=== PATIENT | female | born 1945 | race Caucasian/White ===

== ENCOUNTER 2017-10-17 06:36 | Day surgery (SDC) | payer MEDICARE, OTHER ==
[2017-10-17] MEDS ORDERED: Sodium Chloride 0.9% 1,000 ML IV SCH (07:15)
[2017-10-17] MEDS ORDERED: Midazolam 1 MG/ML 2 ML SDV ONE (07:17)
[2017-10-17] MEDS ORDERED: Propofol 200 MG/20 ML SDV ONE (07:17)
[2017-10-17] MEDS ORDERED: fentaNYL 100 MCG/2 ML SDV ONE (07:17)
[2017-10-17] MEDS ORDERED: Sodium Chloride 0.9% 10 ML ONE (08:21)
[2017-10-17 09:29] VITALS: BP 164/82
--- NOTE | 2017-10-18 08:29 | OR ---
DATE OF PROCEDURE: 10/17/2017 PROCEDURE: Colonoscopy. FINDINGS: 1. Diverticulosis, moderate, limited to sigmoid colon. 2. Sessile-type polyp at approximately 10 cm, partially removed using hot snare and tattooed at the site using Mary ink. RISKS: Risks, benefits, alternatives, and limitations including, but not limited to infection, bleeding, and perforation were explained to the patient, who wished to proceed. PREOPERATIVE DIAGNOSIS: Screening colonoscopy. POSTOPERATIVE DIAGNOSIS: Screening colonoscopy. PROCEDURE IN DETAIL: The patient was placed in left lateral decubitus position. Digital rectal exam was performed without abnormality. The scope was introduced and advanced atraumatically to the ileocecal valve. The scope was brought back through the ascending, transverse, descending colon, and retroflexed. The only polyp noted was a sessile-type plaque-like lesion at approximately 10 cm and size of approximately 1 to 1.5 cm. This was biopsied first using cold biopsy forceps and then a submucosal normal saline injection was performed to facilitate maximum removal using hot snare. Unfortunately, this was not amenable to complete removal, due to the very flat-like aspect of this. Minimal bleeding was noted during this removal. The patient also had diverticulosis, which was limited to the sigmoid colon. No abnormalities on retroflexion. The patient tolerated the procedure well. Yamil Dale MD /[id number]
== END 2017-10-17 10:00 | disposition home or self-care (01) ==
LOC: JP.SDS 06:36
PROVIDERS: ATTEND Surgery
DX: Z12.11 Encounter for screening for malignant neoplasm of colon (principal); D12.8 Benign neoplasm of rectum; K57.30 Diverticulosis of large intestine without perforation or abscess without bleeding; I10 Essential (primary) hypertension; Z91.030 Bee allergy status; Z91.09 Other allergy status, other than to drugs and biological substances
CPT/HCPCS: 45380; 45381; 45385; 88305; J2250; J2704; J3010; J7040; J7050; J7030

== ENCOUNTER 2017-10-24 23:36 | Observation (INO) | payer MEDICARE, OTHER ==
[2017-10-25] MEDS ORDERED: Ondansetron 4 MG Tab.DIS PO ONE (00:23)
[2017-10-25] MEDS ORDERED: HYDROmorphone 1 MG/ML Syringe IVPUSH ONE (01:04)
[2017-10-25] MEDS ORDERED: Lactated Ringers 1,000 ML IV SCH (01:15)
[2017-10-25] MEDS ORDERED: Acetaminophen 325 MG Tab PO PRN (02:49)
[2017-10-25] MEDS ORDERED: Morphine 2 MG/ML Syringe IVPUSH PRN (02:49)
[2017-10-25] MEDS ORDERED: Temazepam 15 MG Cap PO PRN (02:49)
[2017-10-25] MEDS ORDERED: Promethazine 25 MG Tab PO PRN (02:49)
[2017-10-25] MEDS ORDERED: Albuterol 0.083% 2.5 MG/3 ML Neb Soln NEB PRN (02:49)
[2017-10-25] MEDS ORDERED: Ibuprofen 600 MG Tab PO PRN (02:49)
[2017-10-25] MEDS ORDERED: LORazepam 2 MG/ML SDV IV PRN (02:49)
--- NOTE | 2017-10-25 02:59 | PCM.HP ---
H&P History of Present Illness - General Date of Service: 10/24/17 Admit Problem/Dx: Admission Diagnosis/Problem Admission Diagnosis/Problem Flank pain Source of Information: Patient History Limitations: Reports: No Limitations - History of Present Illness Initial Comments - Free Text/Narative: left flank and abdominal pain -pt arrived with severe left sided flank pain and extending into the groin. She has pain when she voids. She reports has been sick since 10 am. feeling nauseated, dry heaves. severe back and low abdomen pain. Onset of Symptoms: Reports: Sudden Symptom Onset Date: 10/24/17 Symptom Onset Time: 10:10 Duration of Symptoms: Reports: Getting Worse Location: Reports: Abdomen Quality: Reports: Same as Previous Episode (hx kidney stones on March 2017) Severity: Moderate Improves with: Reports: Medication Worsens with: Reports: None Associated Symptoms: Reports: Loss of Appetite, Nausea/Vomiting Middle Abdomen Pain Score (Numeric/FACES): 6 - Related Data Allergies/Adverse Reactions: Allergies Allergy/AdvReac Type Severity Reaction Status Date / Time adhesive Allergy Blisters Verified 10/25/17 00:13 venom-honey bee Allergy Swelling Verified 10/25/17 00:13 [bee venom (honey bee)] Home Medications: Home Meds EPINEPHrine [Epipen] 0.3 mg IM ASDIRECTED PRN 12/09/13 [History] Sennosides [Senna Laxative] 15 mg PO DAILY 06/28/14 [History] Naproxen [Take Home: Naproxen 500 MG, 4 Tab Pack] 500 mg PO BID PRN 09/13/15 [ History] Biotin/Calcium Carbonate [Biotin 800 MCG] 800 mg PO DAILY 04/17/16 [History] Aspirin [Halfprin] 81 mg PO DAILY 10/16/17 [History] Lisinopril/Hydrochlorothiazide [Lisinopril-Hctz 20-25 mg Tab] 1 each PO DAILY [History] Past Medical History HEENT History: Reports: Cataract, Impaired Vision Cardiovascular History: Reports: High Cholesterol, Hypertension Gastrointestinal History: Reports: Chronic Constipation, Colon Polyp, Diverticulosis, GERD, Hemorrhoids, Irritable Bowel Syndrome Genitourinary History: Reports: Renal Calculus [employer] History: Reports: , Prolapsed Uterus Musculoskeletal History: Reports: None Neurological History: Reports: Concussion, TIA, Vertigo Endocrine/Metabolic History: Reports: Osteoporosis Dermatologic History: Reports: None - Infectious Disease History Infectious Disease History: Reports: Chicken Pox - Past Surgical History HEENT Surgical History: Reports: Cataract Surgery, Eye Surgery, Oral Surgery, Other (See Below) GI Surgical History: Reports: Colonoscopy, Hernia, Inguinal, Polypectomy Musculoskeletal Surgical History: Reports: Arthroscopic Procedure, Shoulder Surgery, Other (See Below) Dermatological Surgical History: Reports: Skin Biopsy Social & Family History - Family History Family Medical History: Noncontributory - Tobacco Use Smoking Status *Q: Never Smoker Years of Tobacco use: 10 Packs/Tins Daily: 0.5 Used Tobacco, but Quit: Yes Month Tobacco Last Used: 20 yrs ago Second Hand Smoke Exposure: No - Caffeine Use Caffeine Use: Reports: Coffee - Alcohol Use Days Per Week of Alcohol Use: 1 Number of Drinks Per Day: 1 Total Drinks Per Week: 1 - Recreational Drug Use Recreational Drug Use: No - Living Situation & Occupation Living situation: Reports: , with Family Occupation: Retired H&P Review of Systems - Review of Systems: Review Of Systems: Unable To Obtain General: Reports: Fever, Chills, Malaise, Weakness, Decreased Appetite, Other ( pain in left side) HEENT: Reports: No Symptoms Pulmonary: Reports: No Symptoms Cardiovascular: Reports: No Symptoms Gastrointestinal: Reports: No Symptoms Genitourinary: Reports: Flank Pain (left) Musculoskeletal: Reports: Back Pain (left) Skin: Reports: No Symptoms Psychiatric: Reports: No Symptoms Neurological: Reports: No Symptoms Hematologic/Lymphatic: Reports: No Symptoms Immunologic: Reports: No Symptoms Exam - Exam Exam: See Below - Vital Signs Vital Signs: Last Vital Signs Temp 35.8 C 10/25/17 00:09 Pulse 68 10/25/17 00:09 Resp 14 10/25/17 00:09 BP 147/69 H 10/25/17 00:09 Pulse Ox 97 10/25/17 00:09 Weight: 74.389 kg - Exam General: Alert, Oriented, 4 HEENT: PERRLA, Hearing Intact, Mucosa Moist & [place], Nares Patent, Normal Nasal Septum, Posterior Pharynx Clear, Conjunctiva Clear, EOMI, EACs Clear, TMs Clear Neck: Supple, Trachea Midline, 2 Lungs: Clear to Auscultation, Normal Respiratory Effort Cardiovascular: Regular Rate, Regular Rhythm GI/Abdominal Exam: Normal Bowel Sounds, Soft, No Organomegaly, No Distention, No Abnormal Bruit, No Mass, Pelvis Stable, Tender (left lateral and left low pelvis; tender to palpation) (Female) Exam: Deferred Rectal (Female) Exam: Deferred Back Exam: Normal Inspection, Full Range of Motion, NT Extremities: Normal Inspection, Normal Range of Motion, Non-Tender, No Pedal Edema, Normal Capillary Refill Peripheral Pulses: 2+: Dorsalis Pedis (L), Dorsalis Pedis (R) Skin: Warm, Dry, Intact Neurological: Cranial Nerves Intact, Reflexes Equal Bilateral Neuro Extensive - Mental Status: Alert, Oriented x3, Normal Mood/Affect, Normal Cognition Neuro Extensive - Motor, Sensory, Reflexes: CN II-XII Intact, Normal Gait, Normal Reflexes Psychiatric: Alert, Normal Affect, Normal Mood - Patient Data Lab Results Last 24 hrs: Laboratory Results - last 24 hr 10/24/17 10/24/17 10/25/17 Range/Units 23:41 23:41 00:27 WBC 10.6 (4.5-11.0) K/uL RBC 4.54 (3.30-5.50) M/uL Hgb 13.7 (12.0-15.0) g/dL Hct 39.6 (36.0-48.0) % MCV 87 (80-98) fL MCH 30 (27-31) pg MCHC 35 (32-36) % Plt Count 215 (150-400) K/uL Neut % (Auto) 72 H (36-66) % Lymph % (Auto) 17 L (24-44) % [place] % (Auto) 10 H (2-6) % Eos % (Auto) 0 L (2-4) % Baso % (Auto) 0 (0-1) % Sodium 141 (140-148) mmol/L Potassium 4.0 (3.6-5.2) mmol/L Chloride 105 (100-108) mmol/L Carbon Dioxide 25 (21-32) mmol/L Anion Gap 10.8 (5.0-14.0) mmol/L BUN 27 H (7-18) mg/dL Creatinine 1.3 H (0.6-1.0) mg/dL Est Cr Clr Drug Dosing 34.49 mL/min Estimated GFR (MDRD) 40 L (>60) Glucose 128 H (74-106) mg/dL Calcium 8.7 (8.5-10.1) mg/dL Urine Color Yellow Urine Appearance Clear Urine pH 5.0 (4.5-8.0) Ur Specific [place] 1.020 (1.008-1.030) Urine Protein Negative (NEGATIVE) mg/dL Urine Glucose (UA) Normal (NEGATIVE) mg/dL Urine Ketones Negative (NEGATIVE) mg/dL Urine Occult Blood Large (NEGATIVE) Urine Nitrite Negative (NEGATIVE) Urine Bilirubin Negative (NEGATIVE) Urine Urobilinogen Normal (NORMAL) mg/dL Ur Leukocyte Esterase Negative (NEGATIVE) Urine RBC 0-5 (0-5) Urine WBC 0-5 (0-5) Ur Epithelial Cells Few Amorphous Sediment Rare Urine Bacteria Few Urine Mucus Not seen Result Diagrams: 10/24/17 23:41 10/24/17 23:41 *Q Meaningful Use (ADM) - VTE *Q VTE Criteria *Q: - Stroke *Q Stroke Criteria *Q: - AMI *Q AMI Criteria *Q: - Problem List (1) Flank pain, acute SNOMED Code(s): 414720154 ICD Code: R10.9 - UNSPECIFIED ABDOMINAL PAIN Status: Acute Priority: High Current Visit: Yes (2) Left flank pain SNOMED Code(s): 273086570 ICD Code: R10.9 - UNSPECIFIED ABDOMINAL PAIN Status: Acute Priority: High Current Visit: Yes Problem List Initiated/Reviewed/Updated: Yes Orders Last 24hrs: Active Orders 24 hr Category Date Time Status Patient Status Manage Transfer [TRANSFER] Routine ADT 10/25/17 02:35 Active Kidney Stone Protocol [CT] Stat Exams 10/25/17 01:04 Taken Lactated Ringers [Ringers, Lactated] 1,000 ml Med 10/25/17 01:15 Active IV ASDIRECTED Resuscitation Status Routine Resus Stat 10/25/17 02:37 Ordered Medication Orders Lactated Ringer's (Ringers, Lactated) 1,000 mls @ 999 mls/hr IV ASDIRECTED KRYS Last Admin: 10/25/17 01:35 Dose: 999 mls/hr Assessment/Plan Comment:: ASSESSMENT / PLAN ASSESSMENT / PLAN -pt arrived with severe leftt sided flank pain and extending into the groin. She has pain when she voids. She reports has been sick since 10 am,. feeling nauseated, dry heaves. severe back and low abdomen pain. labs done is CBC, CMP, lactic acid; normal. Urine with micro;occult blood Imaging; CT abdomen - 2 renal stones noted to proximal left urethere, past medical history -March 2017; 2 renal stones noted Plan -Admit Observation 2 North for further monitoring -Iv fluids LR at 125ml/hr -pain medications ordered. -Advise to notify nurses of any fever, chills, worsen pain or other symptoms Maintenance issues -Orders home meds: hold -Nutrition: Regular diet -Alicia catheter not indicated at this time -DVT:Lovenox 30mg subcut daily -GI Prophalaxis; Protonix 40mg daily CODE STATUS: Full Admission status: Admit to Observation -I expect this patient to stay less than 24 hours, not to exceed 96 hours for evaluation and management of this problem. Disposition: home with family Primary care provider: Wilber Moran Hospitalist: Dr. Coombs
[2017-10-25] MEDS: Lactated Ringers 1,000 ML IV SCH ×3 (03:14→18:16)
--- NOTE | 2017-10-25 03:21 | EDM.PDOC ---
ED HPI GENERAL MEDICAL PROBLEM - General Chief Complaint: Flank Pain Stated Complaint: ABDOMINAL PAIN Time Seen by Provider: 10/24/17 23:40 Source of Information: Reports: Patient History Limitations: Reports: No Limitations - History of Present Illness Onset: Sudden Onset Date: 10/24/17 Onset Time: 10:10 Duration: Getting Worse Location: Reports: Abdomen Quality: Reports: Same as Previous Episode (hx kidney stones on March 2017) Severity: Moderate Improves with: Reports: Medication Worsens with: Reports: None Associated Symptoms: Reports: Loss of Appetite, Nausea/Vomiting Middle Abdomen Pain Score (Numeric/FACES): 6 - Related Data Allergies Allergy/AdvReac Type Severity Reaction Status Date / Time adhesive Allergy Blisters Verified 10/25/17 00:13 venom-honey bee Allergy Swelling Verified 10/25/17 00:13 [bee venom (honey bee)] Home Meds: Home Meds EPINEPHrine [Epipen] 0.3 mg IM ASDIRECTED PRN 12/09/13 [History] Sennosides [Senna Laxative] 15 mg PO DAILY 06/28/14 [History] Naproxen [Take Home: Naproxen 500 MG, 4 Tab Pack] 500 mg PO BID PRN 09/13/15 [ History] Biotin/Calcium Carbonate [Biotin 800 MCG] 800 mg PO DAILY 04/17/16 [History] Aspirin [Halfprin] 81 mg PO DAILY 10/16/17 [History] Lisinopril/Hydrochlorothiazide [Lisinopril-Hctz 20-25 mg Tab] 1 each PO DAILY [History] Past Medical History HEENT History: Reports: Cataract, Impaired Vision Cardiovascular History: Reports: High Cholesterol, Hypertension Gastrointestinal History: Reports: Chronic Constipation, Colon Polyp, Diverticulosis, GERD, Hemorrhoids, Irritable Bowel Syndrome Genitourinary History: Reports: Renal Calculus MANAGER SHIFT History: Reports: , Prolapsed Uterus Musculoskeletal History: Reports: None Neurological History: Reports: Concussion, TIA, Vertigo Endocrine/Metabolic History: Reports: Osteoporosis Dermatologic History: Reports: None - Infectious Disease History Infectious Disease History: Reports: Chicken Pox - Past Surgical History HEENT Surgical History: Reports: Cataract Surgery, Eye Surgery, Oral Surgery, Other (See Below) GI Surgical History: Reports: Colonoscopy, Hernia, Inguinal, Polypectomy Musculoskeletal Surgical History: Reports: Arthroscopic Procedure, Shoulder Surgery, Other (See Below) Dermatological Surgical History: Reports: Skin Biopsy Social & Family History - Family History Family Medical History: Noncontributory - Tobacco Use Smoking Status *Q: Never Smoker Years of Tobacco use: 10 Packs/Tins Daily: 0.5 Used Tobacco, but Quit: Yes Month Tobacco Last Used: 20 yrs ago Second Hand Smoke Exposure: No - Caffeine Use Caffeine Use: Reports: Coffee - Alcohol Use Days Per Week of Alcohol Use: 1 Number of Drinks Per Day: 1 Total Drinks Per Week: 1 - Recreational Drug Use Recreational Drug Use: No - Living Situation & Occupation Living situation: Reports: , with Family Occupation: Retired ED ROS GENERAL - Review of Systems Review Of Systems: See Below Constitutional: Reports: Fever, Chills, Malaise, Weakness, Weight Loss, Other HEENT: Reports: No Symptoms Respiratory: Reports: No Symptoms Cardiovascular: Reports: No Symptoms Endocrine: Reports: No Symptoms GI/Abdominal: Reports: Abdominal Pain, Decreased Appetite, Nausea, Vomiting : Reports: No Symptoms, Urgency Musculoskeletal: Reports: Leg Pain, Muscle Pain Skin: Reports: No Symptoms Neurological: Reports: No Symptoms Psychiatric: Reports: No Symptoms Hematologic/Lymphatic: Reports: No Symptoms Immunologic: Reports: No Symptoms ED EXAM, GENERAL - Physical Exam Exam: See Below Exam Limited By: No Limitations General Appearance: Alert, WD/WN, Moderate Distress Eye Exam: Bilateral Eye: EOMI, Normal Inspection Ears: Normal External Exam, Normal Canal, Hearing Grossly Normal, Normal TMs Ear Exam: Bilateral Ear: Auricle Normal, Canal Normal, TM normal Nose: Normal Inspection, Normal Mucosa, No Blood Throat/Mouth: Normal Inspection Head: Atraumatic, Normocephalic Neck: Normal Inspection, Supple, Non-Tender, Full Range of Motion Respiratory/Chest: No Respiratory Distress, Lungs Clear, Normal Breath Sounds Cardiovascular: Normal Peripheral Pulses, Regular Rate, Rhythm, No Edema, No Murmur Peripheral Pulses: 2+: Dorsalis Pedis (L), Dorsalis Pedis (R) GI/Abdominal: Normal Bowel Sounds, Soft, No Organomegaly, No Distention, No Abnormal Bruit, No Mass, Pelvis Stable, Tender (left lateral and left low pelvis ; tender to palpation) (Female) Exam: Deferred Rectal (Female) Exam: Deferred Back Exam: Normal Inspection, Full Range of Motion, NT Extremities: Normal Inspection, Normal Range of Motion, Non-Tender, No Pedal Edema, Normal Capillary Refill Neurological: Alert, Oriented, CN II-XII Intact, Normal Cognition, Normal Gait, Normal Reflexes, No Motor/Sensory Deficits Psychiatric: Normal Affect, Normal Mood Skin Exam: Warm, Dry, Intact, Normal Color, No Rash Lymphatic: No Adenopathy Course - Vital Signs Last Recorded V/S: Last Vital Signs Temp 35.8 C 10/25/17 00:09 Pulse 68 10/25/17 00:22 Resp 12 10/25/17 00:22 BP 141/72 H 10/25/17 00:22 Pulse Ox 98 10/25/17 00:22 - Orders/Labs/Meds Orders: Active Orders 24 hr Category Date Time Status Patient Status [ADT] Routine ADT 10/25/17 02:49 Active Intake and Output [RC] QSHIFT Care 10/25/17 02:49 Active Notify Provider Vital Signs [RC] ASDIRECTED Care 10/25/17 02:49 Active Oxygen Therapy [RC] PRN Care 10/25/17 02:49 Active RT Aerosol Therapy [RC] ASDIRECTED Care 10/25/17 02:49 Active Up ad Alem [RC] ASDIRECTED Care 10/25/17 02:49 Active VTE/DVT Education [RC] Per Unit Routine Care 10/25/17 02:49 Active Vital Signs [RC] Q4H Care 10/25/17 02:49 Active OT Evaluation and Treatment [CONS] Routine Cons 10/25/17 02:49 Active Regular Diet [DIET] Diet 10/25/17 Breakfast Active Kidney Stone Protocol [CT] Stat Exams 10/25/17 01:04 Taken Acetaminophen [Tylenol] Med 10/25/17 02:49 Active 650 mg PO Q4H PRN Acetaminophen/HYDROcodone [[place] 325-5 MG] Med 10/25/17 02:49 Active 1 tab PO Q4H PRN Albuterol [Proventil Neb Soln] Med 10/25/17 02:49 Active 2.5 mg NEB Q4H PRN Enoxaparin [Lovenox] Med 10/25/17 09:00 Active 40 mg SUBCUT DAILY Hydrochlorothiazide Med 10/25/17 09:00 Active 25 mg PO DAILY Ibuprofen [Motrin] Med 10/25/17 02:49 Active 600 mg PO Q6H PRN LORazepam [Ativan] Med 10/25/17 02:49 Active 1 mg IV Q6H PRN Lactated Ringers [Ringers, Lactated] 1,000 ml Med 10/25/17 01:15 Active IV ASDIRECTED Lactated Ringers [Ringers, Lactated] 1,000 ml Med 10/25/17 02:49 Active IV ASDIRECTED Lisinopril [Prinivil] Med 10/25/17 09:00 Active 20 mg PO DAILY Morphine Med 10/25/17 02:49 Active 2 mg IVPUSH Q2H PRN Ondansetron [Zofran] Med 10/25/17 02:49 Active 4 mg IV Q4H PRN Promethazine [Phenergan] Med 10/25/17 02:49 Active 25 mg PO Q6H PRN Sennosides [Senna] Med 10/25/17 09:00 Active 17.2 mg PO DAILY Temazepam [Restoril] Med 10/25/17 02:49 Active 15 mg PO BEDTIME PRN Resuscitation Status Routine Resus Stat 10/25/17 02:37 Ordered Medication Orders Acetaminophen (Tylenol) 650 mg PO Q4H PRN PRN Reason: Pain (Mild 1-3)/fever Hydrocodone Bitart/Acetaminophen ([place] 325-5 Mg) 1 tab PO Q4H PRN PRN Reason: Pain (moderate 4-6) Albuterol (Proventil Neb Soln) 2.5 mg NEB Q4H PRN PRN Reason: Shortness Of Breath/wheezing Enoxaparin Sodium (Lovenox) 40 mg SUBCUT DAILY [facility] Hydrochlorothiazide (Hydrochlorothiazide) 25 mg PO DAILY [facility] Lactated Ringer's (Ringers, Lactated) 1,000 mls @ 999 mls/hr IV ASDIRECTED [facility] Last Admin: 10/25/17 01:35 Dose: 999 mls/hr Lactated Ringer's (Ringers, Lactated) 1,000 mls @ 125 mls/hr IV ASDIRECTED [facility] Last Admin: 10/25/17 03:14 Dose: 125 mls/hr Ibuprofen (Motrin) 600 mg PO Q6H PRN PRN Reason: Pain/Fever Lisinopril (Prinivil) 20 mg PO DAILY [facility] Lorazepam (Ativan) 1 mg IV Q6H PRN PRN Reason: Nausea/Vomiting Morphine Sulfate (Morphine) 2 mg IVPUSH Q2H PRN PRN Reason: Pain (severe 7-10) Ondansetron HCl (Zofran) 4 mg IV Q4H PRN PRN Reason: Nausea/Vomiting Promethazine HCl (Phenergan) 25 mg PO Q6H PRN PRN Reason: Nausea able to take PO Senna (Senna) 17.2 mg PO DAILY [facility] Temazepam (Restoril) 15 mg PO BEDTIME PRN PRN Reason: Sleep Labs: Laboratory Tests 10/24/17 10/24/17 10/25/17 Range/Units 23:41 23:41 00:27 WBC 10.6 (4.5-11.0) K/uL RBC 4.54 (3.30-5.50) M/uL Hgb 13.7 (12.0-15.0) g/dL Hct 39.6 (36.0-48.0) % MCV 87 (80-98) fL MCH 30 (27-31) pg MCHC 35 (32-36) % Plt Count 215 (150-400) K/uL Neut % (Auto) 72 H (36-66) % Lymph % (Auto) 17 L (24-44) % [place] % (Auto) 10 H (2-6) % Eos % (Auto) 0 L (2-4) % Baso % (Auto) 0 (0-1) % Sodium 141 (140-148) mmol/L Potassium 4.0 (3.6-5.2) mmol/L Chloride 105 (100-108) mmol/L Carbon Dioxide 25 (21-32) mmol/L Anion Gap 10.8 (5.0-14.0) mmol/L BUN 27 H (7-18) mg/dL Creatinine 1.3 H (0.6-1.0) mg/dL Est Cr Clr Drug Dosing 34.49 mL/min Estimated GFR (MDRD) 40 L (>60) Glucose 128 H (74-106) mg/dL Calcium 8.7 (8.5-10.1) mg/dL Urine Color Yellow Urine Appearance Clear Urine pH 5.0 (4.5-8.0) Ur Specific [place] 1.020 (1.008-1.030) Urine Protein Negative (NEGATIVE) mg/dL Urine Glucose (UA) Normal (NEGATIVE) mg/dL Urine Ketones Negative (NEGATIVE) mg/dL Urine Occult Blood Large (NEGATIVE) Urine Nitrite Negative (NEGATIVE) Urine Bilirubin Negative (NEGATIVE) Urine Urobilinogen Normal (NORMAL) mg/dL Ur Leukocyte Esterase Negative (NEGATIVE) Urine RBC 0-5 (0-5) Urine WBC 0-5 (0-5) Ur Epithelial Cells Few Amorphous Sediment Rare Urine Bacteria Few Urine Mucus Not seen Meds: Medications Generic Name Dose Route Start Last Admin Trade Name Freq PRN Reason Stop Dose Admin Acetaminophen 650 mg 10/25/17 02:49 Tylenol PO Q4H PRN Pain (Mild 1-3)/fever Hydrocodone Bitart/Acetaminophen 1 tab 10/25/17 02:49 [place] 325-5 Mg PO Q4H PRN Pain (moderate 4-6) Albuterol 2.5 mg 10/25/17 02:49 Proventil Neb Soln NEB Q4H PRN Shortness Of Breath/wheezing Enoxaparin Sodium 40 mg 10/25/17 09:00 Lovenox SUBCUT DAILY [facility] Hydrochlorothiazide 25 mg 10/25/17 09:00 Hydrochlorothiazide PO DAILY [facility] Lactated Ringer's 1,000 mls @ 999 mls/hr 10/25/17 01:15 10/25/17 01:35 Ringers, Lactated IV 999 mls/hr ASDIRECTED [facility] Administration Lactated Ringer's 1,000 mls @ 125 mls/hr 10/25/17 02:49 10/25/17 03:14 Ringers, Lactated IV 125 mls/hr ASDIRECTED [facility] Administration Ibuprofen 600 mg 10/25/17 02:49 Motrin PO Q6H PRN Pain/Fever Lisinopril 20 mg 10/25/17 09:00 Prinivil PO DAILY [facility] Lorazepam 1 mg 10/25/17 02:49 Ativan IV Q6H PRN Nausea/Vomiting Morphine Sulfate 2 mg 10/25/17 02:49 Morphine IVPUSH Q2H PRN Pain (severe 7-10) Ondansetron HCl 4 mg 10/25/17 02:49 Zofran IV Q4H PRN Nausea/Vomiting Promethazine HCl 25 mg 10/25/17 02:49 Phenergan PO Q6H PRN Nausea able to take PO Senna 17.2 mg 10/25/17 09:00 Senna PO DAILY [facility] Temazepam 15 mg 10/25/17 02:49 Restoril PO BEDTIME PRN Sleep Discontinued Medications Generic Name Dose Route Start Last Admin Trade Name [place] PRN Reason Stop Dose Admin Enoxaparin Sodium 30 mg 10/25/17 09:00 Lovenox SUBCUT DAILY [facility] Hydromorphone HCl 1 mg 10/25/17 01:04 10/25/17 01:36 Dilaudid IVPUSH 10/25/17 01:05 1 mg ONETIME ONE Administration Ondansetron HCl 4 mg 10/25/17 00:23 10/25/17 00:36 Zofran Odt PO 10/25/17 00:24 4 mg ONETIME ONE Administration - Re-Assessments/Exams Free Text/Narrative Re-Assessment/Exam: 10/25/17 03:19 give Iv fluids, dilaudid 1mg; improved. CT scan of abdomen/kidney show a 4mm stone in the proximal left ureter, and another non obstructing stone in ureter. advise Patient and her of results. She would to be admitted for pain control Departure - Departure Time of Disposition: 02:00 Disposition: Admitted As Inpatient 65 Condition: Good Clinical Impression: Flank pain, acute, Renal calculus, left - Discharge Information Referrals: Lyudmila Moran CNM [Primary Care Provider] - Forms: ED Department Discharge - Problem List & Annotations (1) Flank pain, acute SNOMED Code(s): 091035011 Code(s): R10.9 - UNSPECIFIED ABDOMINAL PAIN Status: Acute Priority: High Current Visit: Yes (2) Left flank pain SNOMED Code(s): 305250797 Code(s): R10.9 - UNSPECIFIED ABDOMINAL PAIN Status: Acute Priority: High Current Visit: Yes - My Orders Last 24 Hours: My Active Orders 10/25/17 01:04 Kidney Stone Protocol [CT] Stat 10/25/17 01:15 Lactated Ringers [Ringers, Lactated] 1,000 ml IV ASDIRECTED 10/25/17 02:37 Resuscitation Status Routine 10/25/17 02:49 Patient Status [ADT] Routine Intake and Output [RC] QSHIFT Notify Provider Vital Signs [RC] ASDIRECTED Oxygen Therapy [RC] PRN RT Aerosol Therapy [RC] ASDIRECTED Up ad Alem [RC] ASDIRECTED VTE/DVT Education [RC] Per Unit Routine Vital Signs [RC] Q4H OT Evaluation and Treatment [CONS] Routine Acetaminophen [Tylenol] 650 mg PO Q4H PRN Acetaminophen/HYDROcodone [[place] 325-5 MG] 1 tab PO Q4H PRN Albuterol [Proventil Neb Soln] 2.5 mg NEB Q4H PRN Ibuprofen [Motrin] 600 mg PO Q6H PRN LORazepam [Ativan] 1 mg IV Q6H PRN Lactated Ringers [Ringers, Lactated] 1,000 ml IV ASDIRECTED Morphine 2 mg IVPUSH Q2H PRN Ondansetron [Zofran] 4 mg IV Q4H PRN Promethazine [Phenergan] 25 mg PO Q6H PRN Temazepam [Restoril] 15 mg PO BEDTIME PRN 10/25/17 09:00 Enoxaparin [Lovenox] 40 mg SUBCUT DAILY Hydrochlorothiazide 25 mg PO DAILY Lisinopril [Prinivil] 20 mg PO DAILY Sennosides [Senna] 17.2 mg PO DAILY 10/25/17 Breakfast Regular Diet [DIET] - Assessment/Plan Last 24 Hours: My Active Orders 10/25/17 01:04 Kidney Stone Protocol [CT] Stat 10/25/17 01:15 Lactated Ringers [Ringers, Lactated] 1,000 ml IV ASDIRECTED 10/25/17 02:37 Resuscitation Status Routine 10/25/17 02:49 Patient Status [ADT] Routine Intake and Output [RC] QSHIFT Notify Provider Vital Signs [RC] ASDIRECTED Oxygen Therapy [RC] PRN RT Aerosol Therapy [RC] ASDIRECTED Up ad Alem [RC] ASDIRECTED VTE/DVT Education [RC] Per Unit Routine Vital Signs [RC] Q4H OT Evaluation and Treatment [CONS] Routine Acetaminophen [Tylenol] 650 mg PO Q4H PRN Acetaminophen/HYDROcodone [[place] 325-5 MG] 1 tab PO Q4H PRN Albuterol [Proventil Neb Soln] 2.5 mg NEB Q4H PRN Ibuprofen [Motrin] 600 mg PO Q6H PRN LORazepam [Ativan] 1 mg IV Q6H PRN Lactated Ringers [Ringers, Lactated] 1,000 ml IV ASDIRECTED Morphine 2 mg IVPUSH Q2H PRN Ondansetron [Zofran] 4 mg IV Q4H PRN Promethazine [Phenergan] 25 mg PO Q6H PRN Temazepam [Restoril] 15 mg PO BEDTIME PRN 10/25/17 09:00 Enoxaparin [Lovenox] 40 mg SUBCUT DAILY Hydrochlorothiazide 25 mg PO DAILY Lisinopril [Prinivil] 20 mg PO DAILY Sennosides [Senna] 17.2 mg PO DAILY 10/25/17 Breakfast Regular Diet [DIET]
[2017-10-25] MEDS: HYDROmorphone 1 MG/ML Syringe IVPUSH PRN ×4 (03:34→13:58)
[2017-10-25] MEDS: Acetaminophen/HYDROcodone 325-5 MG Tab PO PRN ×3 (04:56→13:54)
[2017-10-25] MEDS: Ondansetron 4 MG/2 ML SDV IV PRN ×3 (07:02→18:29)
[2017-10-25] MEDS ORDERED: Enoxaparin 30 MG/0.3 ML Syringe SUBCUT SCH (09:00)
[2017-10-25] MEDS ORDERED: Enoxaparin 40 MG/0.4 ML Syringe SUBCUT SCH (09:00)
[2017-10-25] MEDS ORDERED: Tamsulosin 0.4 MG Cap.ER PO ONE (11:00)
[2017-10-25] MEDS: Hydrochlorothiazide 25 MG Tab PO SCH (11:04)
[2017-10-25] MEDS: Lisinopril 20 MG Tab PO SCH (11:51)
[2017-10-25] MEDS: Sennosides 8.6 MG Tab PO SCH (11:51)
[2017-10-25] MEDS ORDERED: Ketorolac 30 MG/ML SDV IVPUSH PRN (14:07)
[2017-10-25] MEDS ORDERED: HYDROmorphone 2 MG Tab PO PRN (14:07)
[2017-10-26] MEDS: Lactated Ringers 1,000 ML IV SCH (02:19)
[2017-10-26 07:51] VITALS: BP 126/63
[2017-10-26] MEDS: Hydrochlorothiazide 25 MG Tab PO SCH (08:00)
[2017-10-26] MEDS: Lisinopril 20 MG Tab PO SCH (08:00)
[2017-10-26] MEDS: Sennosides 8.6 MG Tab PO SCH (08:01)
--- NOTE | 2017-10-26 08:40 | PCM.DCSUM1 ---
Discharge Summary - Hospital Course Brief History: 71 -year-old female with history of essential hypertension and one previous episode of nephrolithiasis who presented with acute left flank pain and was admitted for management of asymptomatic stone in the proximal left ureter. - Discharge Data Discharge Date: 10/26/17 Discharge Disposition: Home, Self-Care 01 Condition: Good - Discharge Diagnosis/Problem(s) (1) Renal calculus, left SNOMED Code(s): 55451234 ICD Code: N20.0 - CALCULUS OF KIDNEY Status: Acute Current Visit: Yes (2) Flank pain, acute SNOMED Code(s): 300907777 ICD Code: R10.9 - UNSPECIFIED ABDOMINAL PAIN Status: Acute Priority: High Current Visit: Yes (3) Essential hypertension SNOMED Code(s): 37051720 ICD Code: I10 - ESSENTIAL (PRIMARY) HYPERTENSION Status: Chronic Current Visit: No - Patient Summary/Data Hospital Course: Kiki presented to the emergency room with acute left flank pain. Workup in the emergency room revealed a 4 mm stone in the proximal left ureter. Given the severity of pain and nausea she was not thought to be safe for outpatient management. She was admitted to the hospital and started on IV fluids as well as both oral and IV pain medications for pain control. She had persistent symptoms throughout the day after admission and was able to pass the stone in the evening after admission. She has been stable overnight with no recurrence of pain or nausea. Vital signs have been stable and there have been no fevers. This is her second episode of nephrolithiasis and consideration could be given to changing her antihypertensive medication since hydrochlorothiazide can increase the risk of renal stones. No medication changes were made during the hospital stay. She is safe for outpatient management at this time and will be discharged home with her . - Patient Instructions Diet: Regular Diet as Tolerated Activity: As Tolerated Driving: May Drive Today Showering/Bathing: May Shower Notify Provider of: Fever, Increased Pain, Nausea and/or Vomiting Other/Special Instructions: 1. You were in the hospital for management of a left -sided kidney stone. Your able to pass the stone with the help of pain medications and IV fluids. No new medications are needed at this time. To help avoid future difficulties with stones it's very important to drink plenty of fluid each day. I recommend at least 64 ounces of fluid per day. 2. Continue your home medications as previously prescribed. 3. Please seek medical attention if you develop fever greater than 101, have recurrence of the pain that brought you when or if you have persistent nausea or vomiting. - Discharge Plan Home Medications: Home Meds EPINEPHrine [Epipen] 0.3 mg IM ASDIRECTED PRN 12/09/13 [History] Sennosides [Senna Laxative] 15 mg PO DAILY 06/28/14 [History] Naproxen [Take Home: Naproxen 500 MG, 4 Tab Pack] 500 mg PO BID PRN 09/13/15 [ History] Biotin/Calcium Carbonate [Biotin 800 MCG] 800 mg PO DAILY 04/17/16 [History] Aspirin [Halfprin] 81 mg PO DAILY 10/16/17 [History] Lisinopril/Hydrochlorothiazide [Lisinopril-Hctz 20-25 mg Tab] 1 each PO DAILY [History] Patient Handouts: Kidney Stones Referrals: Lyudmila Moran CNM [Primary Care Provider] - (follow-up as needed after the hospital stay) - Patient Data Vitals - Most Recent: Last Vital Signs Temp 36.2 C 10/26/17 07:00 Pulse 60 10/26/17 07:00 Resp 16 10/26/17 07:00 BP 126/63 10/26/17 07:00 Pulse Ox 98 10/26/17 07:00 Weight - Most Recent: 74.389 kg I&O - Last 24 hours: Intake & Output 10/25/17 10/26/17 10/26/17 22:59 06:59 14:59 Intake Total 2323 768 650 Output Total 400 450 500 Balance 1923 318 150 Lab Results - Last 24 hrs: Laboratory Results - last 24 hr 10/26/17 10/26/17 Range/Units 05:23 05:23 WBC 7.5 (4.5-11.0) K/uL RBC 4.10 (3.30-5.50) M/uL Hgb 12.0 (12.0-15.0) g/dL Hct 36.7 (36.0-48.0) % MCV 90 (80-98) fL MCH 29 (27-31) pg MCHC 33 (32-36) % Plt Count 188 (150-400) K/uL Sodium 141 (140-148) mmol/L Potassium 3.5 L (3.6-5.2) mmol/L Chloride 105 (100-108) mmol/L Carbon Dioxide 29 (21-32) mmol/L Anion Gap 10.5 (5.0-14.0) mmol/L BUN 22 H (7-18) mg/dL Creatinine 1.3 H (0.6-1.0) mg/dL Est Cr Clr Drug Dosing 34.02 mL/min Estimated GFR (MDRD) 40 L (>60) Glucose 104 (74-106) mg/dL Calcium 8.3 L (8.5-10.1) mg/dL Med Orders - Current: Current Medications Acetaminophen (Tylenol) 650 mg PO Q4H PRN PRN Reason: Pain (Mild 1-3)/fever Albuterol (Proventil Neb Soln) 2.5 mg NEB Q4H PRN PRN Reason: Shortness Of Breath/wheezing Hydrochlorothiazide (Hydrochlorothiazide) 25 mg PO DAILY [facility] Last Admin: 10/26/17 08:00 Dose: Not Given Hydromorphone HCl (Dilaudid) 1 mg IVPUSH Q2H PRN PRN Reason: Pain Last Admin: 10/25/17 13:58 Dose: 1 mg Hydromorphone HCl (Dilaudid) 2 mg PO Q3H PRN PRN Reason: Pain Lactated Ringer's (Ringers, Lactated) 1,000 mls @ 125 mls/hr IV ASDIRECTED [facility] Last Admin: 10/26/17 02:19 Dose: 125 mls/hr Ibuprofen (Motrin) 600 mg PO Q6H PRN PRN Reason: Pain/Fever Ketorolac Tromethamine (Toradol) 15 mg IVPUSH Q6H PRN PRN Reason: Pain Stop: 10/30/17 14:07 Last Admin: 10/25/17 14:17 Dose: 15 mg Lisinopril (Prinivil) 20 mg PO DAILY [facility] Last Admin: 10/26/17 08:00 Dose: Not Given Lorazepam (Ativan) 1 mg IV Q6H PRN PRN Reason: Nausea/Vomiting Ondansetron HCl (Zofran) 4 mg IV Q4H PRN PRN Reason: Nausea/Vomiting Last Admin: 10/25/17 18:29 Dose: 4 mg Promethazine HCl (Phenergan) 25 mg PO Q6H PRN PRN Reason: Nausea able to take PO Senna (Senna) 17.2 mg PO DAILY [facility] Last Admin: 10/26/17 08:01 Dose: Not Given Temazepam (Restoril) 15 mg PO BEDTIME PRN PRN Reason: Sleep Discontinued Medications Hydrocodone Bitart/Acetaminophen ([place] 325-5 Mg) 1 tab PO Q4H PRN PRN Reason: Pain (moderate 4-6) Last Admin: 10/25/17 13:54 Dose: 1 tab Enoxaparin Sodium (Lovenox) 30 mg SUBCUT DAILY [facility] Enoxaparin Sodium (Lovenox) 40 mg SUBCUT DAILY [facility] Last Admin: 10/25/17 11:05 Dose: 40 mg Hydromorphone HCl (Dilaudid) 1 mg IVPUSH ONETIME ONE Stop: 10/25/17 01:05 Last Admin: 10/25/17 01:36 Dose: 1 mg Lactated Ringer's (Ringers, Lactated) 1,000 mls @ 999 mls/hr IV ASDIRECTED [facility] Last Admin: 10/25/17 01:35 Dose: 999 mls/hr Morphine Sulfate (Morphine) 2 mg IVPUSH Q2H PRN PRN Reason: Pain (severe 7-10) Ondansetron HCl (Zofran Odt) 4 mg PO ONETIME ONE Stop: 10/25/17 00:24 Last Admin: 10/25/17 00:36 Dose: 4 mg Tamsulosin HCl (Flomax) 0.4 mg PO ONETIME ONE Stop: 10/25/17 11:01 Last Admin: 10/25/17 11:03 Dose: 0.4 mg Tamsulosin HCl (Flomax) 0.4 mg PO PCBREAKFAST [facility] - Exam Quality Assessment: Denies: Supplemental Oxygen General: Reports: Alert, Oriented, Cooperative, No Acute Distress Lungs: Reports: Normal Respiratory Effort GI/Abdominal Exam: No Distention Psy/Mental Status: Reports: Alert, Normal Affect *Q Meaningful Use (DIS) - VTE *Q VTE Criteria *Q: - Stroke *Q Stroke Criteria *Q: - AMI *Q AMI Criteria *Q:
[2017-10-26] MEDS ORDERED: Tamsulosin 0.4 MG Cap.ER PO SCH (09:00)
== END 2017-10-26 09:47 | disposition home or self-care (01) ==
LOC: JP.ED 23:36 → JP.MS 10-25 02:35
PROVIDERS: ADMIT Internal Medicine; ATTEND Internal Medicine
DX: N13.2 Hydronephrosis with renal and ureteral calculous obstruction (principal); I10 Essential (primary) hypertension; E78.00 Pure hypercholesterolemia, unspecified; K59.09 Other constipation; K21.9 Gastro-esophageal reflux disease without esophagitis; M81.0 Age-related osteoporosis without current pathological fracture; Z79.899 Other long term (current) drug therapy; Z79.82 Long term (current) use of aspirin; Z91.09 Other allergy status, other than to drugs and biological substances; Z91.030 Bee allergy status; Z86.010 Personal history of colon polyps; Z86.73 Personal history of transient ischemic attack (TIA), and cerebral infarction without residual deficits
CPT/HCPCS: 36415; 74176; 80048; 81001; 85025; 85027; 96361; 96372; 96374; 96375; 96376; 99284; 99285; A9270; G0378; J1170; J1650; J1885; J2405; J7120; 99217; 99219

== ENCOUNTER 2017-11-28 07:26 | Day surgery (SDC) | payer MEDICARE, OTHER ==
[2017-11-28] MEDS ORDERED: Sodium Chloride 0.9% 1,000 ML IV SCH (08:00)
[2017-11-28] MEDS ORDERED: Midazolam 1 MG/ML 2 ML SDV ONE (08:19)
[2017-11-28] MEDS ORDERED: Propofol 200 MG/20 ML SDV ONE (08:19)
[2017-11-28] MEDS ORDERED: fentaNYL 100 MCG/2 ML SDV ONE (08:19)
[2017-11-28 09:52] VITALS: BP 121/73
--- NOTE | 2017-11-28 15:47 | OR ---
DATE OF PROCEDURE: 11/28/2017 PROCEDURE: Colonoscopy to transverse colon. FINDINGS: The mass at 10 cm was consistent with a polyp, was again addressed. COMPLICATIONS: None. PRECISION LATHE OPERATOR: None. ANESTHESIA: MAC. RISKS: Risks, benefits, alternatives, and limitations including, but not limited to infection, bleeding, and perforation were explained to the patient, they wished to proceed. PROCEDURE IN DETAIL: The patient was placed in left lateral decubitus position. Digital rectal exam was performed. The scope was introduced and advanced to approximately 70 cm. No abnormalities were noted. The scope was brought back, and the polyp at approximately 10 cm was identified again. This had been tattooed with Mary ink previously. A Histolock snare was then used to grasp the polyp and transect this. Of note, prior to this, normal saline was performed on a submucosal injection plane to further elevate the polyp and reduce perforation risk. This was performed without difficulty. The patient tolerated the procedure and that aspect well. No abnormalities on retroflex. The tissue was, again, sent to pathology. Yamil Dale MD /[id number]
== END 2017-11-28 10:09 | disposition home or self-care (01) ==
LOC: JP.SDS 07:26
PROVIDERS: ATTEND Surgery
DX: Z12.11 Encounter for screening for malignant neoplasm of colon (principal); D12.5 Benign neoplasm of sigmoid colon; I10 Essential (primary) hypertension; K21.9 Gastro-esophageal reflux disease without esophagitis; Z91.030 Bee allergy status; Z91.09 Other allergy status, other than to drugs and biological substances
CPT/HCPCS: 45381; 45385; J2250; J2704; J3010; J7040; 88305

== ENCOUNTER 2017-12-26 09:40 | Day surgery (SDC) | payer MEDICARE, OTHER ==
[~2017-12-26 09:40] MED LIST: Midazolam 1 MG/ML 2 ML SDV ONE; Propofol 200 MG/20 ML SDV ONE; fentaNYL 100 MCG/2 ML SDV ONE
[2017-12-26] MEDS ORDERED: Lactated Ringers 1,000 ML IV SCH (10:15)
[2017-12-26 12:10] VITALS: BP 126/79
--- NOTE | 2017-12-26 13:28 | OR ---
DATE OF PROCEDURE: 12/26/2017 PROCEDURE: Colonoscopy. FINDINGS: Very minimal remnant of a tubular adenoma at 10 cm, completely removed using snare. COMPLICATIONS: None. OPERATOR TECHNICIAN: None. ANESTHESIA: MAC. PREOPERATIVE DIAGNOSIS: Tubular adenoma. POSTOPERATIVE DIAGNOSIS: Tubular adenoma. RISKS: Risks, benefits, alternatives, limitations including, but not limited to infection, bleeding, and perforation were explained to the patient, who wished to proceed. PROCEDURE IN DETAIL: The patient was placed in the left lateral decubitus position. Digital rectal exam was performed without abnormality. The scope was introduced and advanced atraumatically to proximal transverse colon. The scope was brought back, and the only abnormality again seen was the aforementioned polyp. This had been removed previously about 90% to 95%. The small remnant of the polyp was identified. Normal saline was used to lift the polyp. This was resected then using hot snare. No other abnormalities. The patient tolerated the procedure well. Yamil Dale MD /[id number]
== END 2017-12-26 12:26 | disposition home or self-care (01) ==
LOC: JP.SDS 09:40
PROVIDERS: ATTEND Surgery
DX: K63.5 Polyp of colon (principal); I10 Essential (primary) hypertension; E11.9 Type 2 diabetes mellitus without complications; Z91.09 Other allergy status, other than to drugs and biological substances; Z91.030 Bee allergy status
CPT/HCPCS: 45385; 88305; J2250; J2704; J3010; J7120

== ENCOUNTER 2019-02-19 09:34 | Day surgery (SDC) | payer MEDICARE, OTHER ==
[2019-02-19] MEDS ORDERED: Sodium Chloride 0.9% 1,000 ML IV SCH (10:30)
[2019-02-19 12:25] VITALS: BP 132/76
--- NOTE | 2019-02-20 08:26 | OR ---
DATE OF PROCEDURE: 02/19/2019 SURGEON: Yamil Dale MD PROCEDURE: Colonoscopy. FINDINGS: Diverticulosis, mild. COMPLICATIONS: None. GERICARE AIDE: None. ANESTHESIA: MAC. PREOPERATIVE DIAGNOSIS: History of colon polyps. POSTOPERATIVE DIAGNOSIS: History of colon polyps. RISKS: Risks, benefits, and alternatives including, but not limited to infection, bleeding, and perforation were explained to the patient, who wished to proceed. PROCEDURE IN DETAIL: The patient was placed in left lateral decubitus position. Digital rectal exam was performed without abnormality, except for prominent hemorrhoids. The scope was introduced and advanced atraumatically to the ileocecal valve. The scope was brought back through the ascending, transverse, descending colon, and retroflexed. No evidence of old or new blood. No polyps. No masses. No colitis. The previous Mary ink location from the past polyp was inspected. Image was taken of this. No evidence of recurrence or abnormality. Diverticulosis would be described as mild and limited to sigmoid colon without evidence of diverticulitis or bleeding. The patient tolerated the procedure well. Yamil Dale MD /[id number]
== END 2019-02-19 12:50 | disposition home or self-care (01) ==
LOC: JP.SDS 09:34
PROVIDERS: ATTEND Surgery
DX: Z12.11 Encounter for screening for malignant neoplasm of colon (principal); K57.30 Diverticulosis of large intestine without perforation or abscess without bleeding; K64.9 Unspecified hemorrhoids; K21.9 Gastro-esophageal reflux disease without esophagitis; I10 Essential (primary) hypertension; E78.5 Hyperlipidemia, unspecified; E66.9 Obesity, unspecified; Z68.25 Body mass index [BMI] 25.0-25.9, adult; Z86.010 Personal history of colon polyps; Z91.048 Other nonmedicinal substance allergy status
CPT/HCPCS: G0121; J2250; J2704; J3010; J7030